=== PATIENT | female | born 1940 | race Caucasian/White ===

== ENCOUNTER → 2016-10-20 | Outpatient (CLI) | payer OTHER ==
[~2016-10-20] MED LIST: BENADRYL25 M1 PO; CLINDAMYCIN HC300 MG PO; COLACE100 MG PO; CYMBALTA60 MG PO; DURAGESIC25 MCG/HR T; Ecotrin325 MG PO; FENTANYL12 MCG/HR T; MASON NATURAL1200 MG PO; MEVACOR40 MG PO; OSCAL,OYSTER S500 MG PO; OXYCODONE/APAP1 TA2 PO; PEPCID20 MG PO; PREDNICOT20 MG PO; PRILOSEC20 MG PO; SYNTHROID,LEVO50 MCG PO; TRAZODO50 MG PO; VESICARE10 MG PO; VICODIN 5/500 505 MG PO; ZOFRAN ODT4 MG SL
== END | disposition home or self-care (01) ==
LOC: LAB 14:06 → RAD 14:06
DX: M51.37 Other intervertebral disc degeneration, lumbosacral region (principal); M54.16 Radiculopathy, lumbar region; M47.897 Other spondylosis, lumbosacral region; Z90.49 Acquired absence of other specified parts of digestive tract; Z98.890 Other specified postprocedural states

== ENCOUNTER → 2016-10-21 | Outpatient (CLI) | payer OTHER ==
[2016-10-22 17:06] LABS: AMPHETAMINE, URINE Negative ng/mL (Cutoff=1000); BENZODIAZEPINES Negative ng/mL (Cutoff=200); COCAINE, URINE Negative ng/mL (Cutoff=300); CREATININE, UR 154.6 mg/dL (20.0-300.0); METHADONE, URINE Negative ng/mL (Cutoff=300); OPIATES, URINE Negative ng/mL (Cutoff=300); PH URINE 5.5 (4.5-8.9); PHENCYCLIDINE, URINE Negative ng/mL (Cutoff=25); PROPOXYPHENE OR METABOLITE Negative ng/mL (Cutoff=300)
[2016-10-23 00:07] LABS: TAPENTADOL, URINE Negative ng/mL (Cutoff=200)
[2016-10-26 09:04] LABS: FENTANYL, URINE Positive (.); FENTANYL, URINE See Final Results pg/mL (Cutoff=2000); FENTANYL- NORFENTANYL Positive (Cutoff=2000); NORFENTANYL Positive (.); NORFENTANYL CONFRIM 253000 pg/mL (Cutoff=500)
== END | disposition home or self-care (01) ==
LOC: LAB 10-20 14:12
PROVIDERS: Physician Assistant
DX: M51.16 Intervertebral disc disorders with radiculopathy, lumbar region (principal); G57.90 Unspecified mononeuropathy of unspecified lower limb; M54.5 Low back pain; Z79.891 Long term (current) use of opiate analgesic; Z79.899 Other long term (current) drug therapy; G57.93 Unspecified mononeuropathy of bilateral lower limbs; M54.16 Radiculopathy, lumbar region

== ENCOUNTER → 2017-03-03 | Outpatient (CLI) | payer OTHER ==
[2017-03-04 19:04] LABS: AMPHETAMINE, URINE Negative ng/mL (Cutoff=1000); BENZODIAZEPINES Negative ng/mL (Cutoff=200); COCAINE, URINE Negative ng/mL (Cutoff=300); CREATININE, UR 54.3 mg/dL (20.0-300.0); METHADONE, URINE Negative ng/mL (Cutoff=300); OPIATES, URINE Negative ng/mL (Cutoff=300); PH URINE 5.5 (4.5-8.9); PHENCYCLIDINE, URINE Negative ng/mL (Cutoff=25); PROPOXYPHENE OR METABOLITE Negative ng/mL (Cutoff=300)
[2017-03-05 00:09] LABS: TAPENTADOL, URINE Negative ng/mL (Cutoff=200)
== END | disposition home or self-care (01) ==
LOC: LAB 14:10
PROVIDERS: Physical Medicine & Rehabilitation
DX: Z79.891 Long term (current) use of opiate analgesic (principal); Z79.899 Other long term (current) drug therapy

== ENCOUNTER → 2017-03-06 | Outpatient (CLI) | payer OTHER | END | disposition home or self-care (01) | LOC: US 02-24 17:00 | DX: I10 Essential (primary) hypertension (principal); N28.89 Other specified disorders of kidney and ureter ==

== ENCOUNTER → 2017-04-24 | Outpatient (CLI) | payer OTHER ==
[2017-04-24 12:42] LABS: BASO % 0.3 % (0.0-1.0); EOS # 0.1 10*3/uL (0.0-0.4); EOS % 0.9 % (1.0-4.0); HEMATOCRIT 38.5 % (37.0-47.0); HEMOGLOBIN 12.5 g/dl (12.0-16.0); IG # 0.1 10*3/uL (0.0-0.1); LYMPH # 1.8 10*3/uL (1.3-4.4); MEAN CELL VOLUME 92.5 fl (81.0-99.0); MEAN CORPUSCULAR HGB CONC 32.5 g/dl (33.0-37.0); MONO # 0.6 10*3/uL (0.1-1.0); MONO % 6.4 % (3.0-9.0); NEUT # 7.3 10*3/uL (2.3-7.9); NEUT % 73.8 % (47.0-73.0); PLATELET COUNT AUTOMATED 265 10*3/uL (130-400); RED BLOOD COUNT 4.16 10*6/uL (4.10-5.10); RED CELL DISTRI WIDTH 13.6 % (0-14.5); WHITE BLOOD COUNT 9.9 10*3/uL (4.8-10.8)
[2017-04-25 05:08] LABS: RHEUMATOID ARTHRITIS FACTOR 11.6 IU/mL (0.0-13.9)
[2017-04-25 18:05] LABS: LYME AB/TOTAL IMMUNOGLOBULINS <0.91 ISR (0.00-0.90)
[2017-04-27 14:07] LABS: ANTI-RNP ANTIBODIES <0.2 AI (0.0-0.9); ANTI-SMITH ANTIBODIES <0.2 AI (0.0-0.9)
== END | disposition home or self-care (01) ==
LOC: LAB 12:22
PROVIDERS: Physician Assistant
DX: M51.36 Other intervertebral disc degeneration, lumbar region (principal); M48.06 Spinal stenosis, lumbar region; M41.86 Other forms of scoliosis, lumbar region; M47.896 Other spondylosis, lumbar region; G89.29 Other chronic pain

== ENCOUNTER → 2017-07-03 | Outpatient (CLI) | payer OTHER ==
[2017-07-03 13:34] LABS: BUN 17 mg/dl (7-24); CREATININE 0.72 mg/dL (0.55-1.02)
== END | disposition home or self-care (01) ==
LOC: LAB 12:49
DX: M54.16 Radiculopathy, lumbar region (principal)

== ENCOUNTER → 2017-07-07 | Outpatient (CLI) | payer OTHER ==
[2017-07-08 21:05] LABS: AMPHETAMINE, URINE Negative ng/mL (Cutoff=1000); BARBITURATE, URINE Negative ng/mL (Cutoff=200); CANNABINOID, URINE Negative ng/mL (Cutoff=20); CREATININE, UR 84.2 mg/dL (20.0-300.0); PH URINE 6.5 (4.5-8.9)
[2017-07-12 13:05] LABS: FENTANYL, URINE Positive (.); NORFENTANYL Positive (.); NORFENTANYL CONFRIM 66300 pg/mL (Cutoff=500)
== END | disposition home or self-care (01) ==
LOC: LAB 07-06 13:53
PROVIDERS: Pain Medicine Pain Medicine
DX: M51.16 Intervertebral disc disorders with radiculopathy, lumbar region (principal); Z79.891 Long term (current) use of opiate analgesic; Z79.899 Other long term (current) drug therapy

== ENCOUNTER → 2017-12-15 | Outpatient (CLI) | payer OTHER ==
[2017-12-17 11:05] LABS: AMPHETAMINE, URINE Negative ng/mL (Cutoff=1000); BARBITURATE, URINE Negative ng/mL (Cutoff=200); CANNABINOID, URINE Negative ng/mL (Cutoff=20); CREATININE, UR 107.7 mg/dL (20.0-300.0); PH URINE 5.5 (4.5-8.9)
== END | disposition home or self-care (01) ==
LOC: LAB 12:50
PROVIDERS: Physical Medicine & Rehabilitation
DX: M51.16 Intervertebral disc disorders with radiculopathy, lumbar region (principal); M51.36 Other intervertebral disc degeneration, lumbar region; Z79.891 Long term (current) use of opiate analgesic; Z79.899 Other long term (current) drug therapy

== ENCOUNTER → 2018-04-20 | Outpatient (CLI) | payer OTHER ==
[2018-04-22 11:03] LABS: BARBITURATE, URINE Negative ng/mL (Cutoff=200); CANNABINOID, URINE Negative ng/mL (Cutoff=20); CREATININE, UR 121.5 mg/dL (20.0-300.0); PH URINE 5.6 (4.5-8.9)
[2018-04-28 00:03] LABS: FENTANYL, URINE Positive (.); NORFENTANYL Positive (.); NORFENTANYL CONFRIM >90000 pg/mL (Cutoff=500)
== END | disposition home or self-care (01) ==
LOC: LAB 15:30
PROVIDERS: Physical Medicine & Rehabilitation
DX: Z51.81 Encounter for therapeutic drug level monitoring (principal); Z79.891 Long term (current) use of opiate analgesic; Z79.899 Other long term (current) drug therapy

== ENCOUNTER → 2018-09-07 | Outpatient (CLI) | payer OTHER ==
[2018-09-09 13:07] LABS: BARBITURATE, URINE Negative ng/mL (Cutoff=200); CANNABINOID, URINE Negative ng/mL (Cutoff=20); CREATININE, UR 144.6 mg/dL (20.0-300.0); PH URINE 5.5 (4.5-8.9)
[2018-09-12 00:03] LABS: FENTANYL, URINE Positive (.); NORFENTANYL Positive (.); NORFENTANYL CONFRIM >90000 pg/mL (Cutoff=500)
== END | disposition home or self-care (01) ==
LOC: LAB 13:47
PROVIDERS: Anesthesiology
DX: Z79.891 Long term (current) use of opiate analgesic (principal); Z79.899 Other long term (current) drug therapy

== ENCOUNTER → 2018-10-13 | Outpatient (CLI) | payer MEDICARE | END | disposition home or self-care (01) | LOC: RAD 16:02 | DX: M19.042 Primary osteoarthritis, left hand (principal); M19.041 Primary osteoarthritis, right hand; M19.032 Primary osteoarthritis, left wrist; M19.031 Primary osteoarthritis, right wrist; M77.32 Calcaneal spur, left foot; M77.31 Calcaneal spur, right foot; M25.571 Pain in right ankle and joints of right foot; M25.572 Pain in left ankle and joints of left foot; G89.29 Other chronic pain ==

== ENCOUNTER → 2018-10-13 | Outpatient (CLI) | payer OTHER | END | disposition home or self-care (01) | LOC: RAD 16:08 | DX: M16.0 Bilateral primary osteoarthritis of hip (principal); M53.3 Sacrococcygeal disorders, not elsewhere classified; Z96.643 Presence of artificial hip joint, bilateral ==

== ENCOUNTER → 2019-06-22 | Outpatient (CLI) | payer MEDICARE | END | disposition home or self-care (01) | LOC: ORTHO 00:09 | DX: M19.031 Primary osteoarthritis, right wrist (principal); Z91.81 History of falling ==

== ENCOUNTER → 2019-10-12 | Outpatient (CLI) | payer MEDICARE | END | disposition home or self-care (01) | LOC: RAD 11:50 | DX: Z96.9 Presence of functional implant, unspecified (principal) ==

== ENCOUNTER → 2020-04-19 | Outpatient (CLI) | payer MEDICARE | END | disposition home or self-care (01) | LOC: US 04-17 16:00 | DX: N28.89 Other specified disorders of kidney and ureter (principal) ==

== ENCOUNTER 2023-09-23 07:51 | Emergency (ER) | payer MEDICARE ==
[~2023-09-23] VITALS: Wt 72.6 kg
[~2023-09-23 07:51] MED LIST changes: +ACETAMINOPHEN-1 EAC1 PO; +CEFTRIAXONE1 GM IJ; +CETIRIZINE HYDR10 MG PO; +CYMBALTA30 MG PO; +DAPTOMYCIN350 MG IV; +ERYTHROMYCIN OPH1 GM OPH; +FISH OIL 500 M1 EACH PO; +HYDROCODONE-AC1 EAC1 PO; +ZYPREXA2.5 MG PO
[2023-09-23 08:35] LABS: MEAN CORPUSCULAR HGB 29.6 pg (27.0-31.0); MEAN CORPUSCULAR HGB CONC 30.5 g/dl (33.0-37.0); MEAN PLATELET VOLUME 9.4 fl (9.6-12.3); PLATELET COUNT AUTOMATED 399 10*3/uL (130-400); RED BLOOD COUNT 4.33 10*6/uL (4.10-5.10); RED CELL DISTRI WIDTH 14.1 % (0-14.5); WHITE BLOOD COUNT 20.2 10*3/uL (4.8-10.8)
[2023-09-23 08:46] LABS: MANUAL DIFF REFLEX YES
[2023-09-23 08:55] LABS: ACT PARTIAL THROMBO TIME 27.3 SECONDS (20.0-32.1)
[2023-09-23 09:04] LABS: ATYPICAL LYMPHS 1 % (0-0); BURR CELLS FEW; OVALOCYTES FEW; PLATELET SUFFICIENCY NORMAL (NORMAL); POLYCHROMASIA SLIGHT; SCHISTOCYTES FEW; TOTAL CELLS COUNTED 100 #CELLS; TOXIC GRANULATION SLIGHT
[2023-09-23 09:10] LABS: POTASSIUM 4.2 mmol/L (3.4-5.1); TOTAL PROTEIN 7.5 gm/dL (6.0-8.0)
== END 2023-09-23 09:26 | disposition short-term general hospital (02) ==
LOC: ED 07:51
PROVIDERS: Emergency Medicine
DX: I62.9 Nontraumatic intracranial hemorrhage, unspecified (principal); F41.9 Anxiety disorder, unspecified; F32.A Depression, unspecified; E78.00 Pure hypercholesterolemia, unspecified; F03.90 Unspecified dementia, unspecified severity, without behavioral disturbance, psychotic disturbance, mood disturbance, and anxiety; Z88.5 Allergy status to narcotic agent; Z88.0 Allergy status to penicillin; Z88.2 Allergy status to sulfonamides; Z88.8 Allergy status to other drugs, medicaments and biological substances; Z98.890 Other specified postprocedural states; Z98.51 Tubal ligation status